=== PATIENT | female | born 1960 ===

== ENCOUNTER 2022-02-25 13:02 | Day surgery (SDC) | payer BC ==
[~2022-02-25] VITALS: Ht 162.6 cm; Wt 81.3 kg
== END 2022-02-25 16:30 | disposition home or self-care (01) ==
LOC: ORSCSDS 13:02
PROVIDERS: Student in an Organized Health Care Education/Training Program
PROC: 0DBH8ZX Excision of Cecum, Via Natural or Artificial Opening Endoscopic, Diagnostic (ICD-10-PCS; principal; 2022-02-25 14:45)
PROC: 0DBK8ZX Excision of Ascending Colon, Via Natural or Artificial Opening Endoscopic, Diagnostic (ICD-10-PCS; principal; 2022-02-25 14:45)
PROC: 0DBN8ZX Excision of Sigmoid Colon, Via Natural or Artificial Opening Endoscopic, Diagnostic (ICD-10-PCS; principal; 2022-02-25 14:45)
PROC: 0DBL8ZX Excision of Transverse Colon, Via Natural or Artificial Opening Endoscopic, Diagnostic (ICD-10-PCS; principal; 2022-02-25 14:45)
PROC: 0DBM8ZX Excision of Descending Colon, Via Natural or Artificial Opening Endoscopic, Diagnostic (ICD-10-PCS; principal; 2022-02-25 14:45)
DX: R19.5 Other fecal abnormalities (principal); D12.0 Benign neoplasm of cecum; D12.2 Benign neoplasm of ascending colon; D12.3 Benign neoplasm of transverse colon; D12.4 Benign neoplasm of descending colon; K64.8 Other hemorrhoids; Z80.0 Family history of malignant neoplasm of digestive organs
CPT/HCPCS: J0330; J0461; J2405; J2704; J7120

== ENCOUNTER 2022-07-23 07:30 | Inpatient (IN) | payer BC ==
[~2022-07-23] VITALS: Ht 160 cm; Wt 83.2 kg
[~2022-07-23 07:30] MED LIST: Fruit C-100100 MG PO
--- NOTE | 2022-07-25 08:03 | NUR ---
07/25/22 0803 SHARAN STOLL RED RASH LOWER ABD.
--- NOTE | 2022-07-25 10:03 | NUR ---
DISCHARGE SUMMARY PT A&OX4, VSS, BP TRENDING DOWN, EDU PT TO RECORD BP AM/PM AND SHOW TO PCP AT FU APPT, ON RA, DENIS PO SIPS H20, DRESSED SELF, AMB INDEPENDENTLY, DENIES PAIN. DC INS PROVIDED. PT AND REP UNDERSTANDING THOSE INSTRUCTIONS INCLUDING NO LIFTING >10 LBS, FU WITH SURGEON 2 WKS, STERI STRIPS IN PLACE 7-10 DAYS, OK TO SHOWER TOMORROW. 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
== END 2022-07-26 18:17 | disposition home or self-care (01) | DRG 331 ==
LOC: PRE IP 07:30 → SURS 07-25 05:37
PROVIDERS: ADMIT Surgery
PROC: 0DBH4ZZ Excision of Cecum, Percutaneous Endoscopic Approach (ICD-10-PCS; 2022-07-25)
PROC: 0DTJ4ZZ Resection of Appendix, Percutaneous Endoscopic Approach (ICD-10-PCS; principal; 2022-07-25 07:30)
DX: K63.5 Polyp of colon (principal); G43.909 Migraine, unspecified, not intractable, without status migrainosus; Z98.890 Other specified postprocedural states; Z88.0 Allergy status to penicillin
CPT/HCPCS: 88307; 93005; 93010; J0690; J2250; J2704; J3010; J7120

== ENCOUNTER 2022-08-26 06:29 | Day surgery (SDC) | payer BC ==
[~2022-08-26] VITALS: Ht 160 cm; Wt 81.8 kg
[2022-08-26] MEDS ORDERED: LISI20 (06:54)
[2022-08-26 09:14] VITALS: BP 129/75
== END 2022-08-26 09:10 | disposition home or self-care (01) ==
LOC: ORSCSDS 06:29
PROVIDERS: Student in an Organized Health Care Education/Training Program
PROC: 0DBN8ZX Excision of Sigmoid Colon, Via Natural or Artificial Opening Endoscopic, Diagnostic (ICD-10-PCS; principal; 2022-08-26 08:00)
PROC: 0DBH8ZX Excision of Cecum, Via Natural or Artificial Opening Endoscopic, Diagnostic (ICD-10-PCS; principal; 2022-08-26 08:00)
PROC: 0DBL8ZX Excision of Transverse Colon, Via Natural or Artificial Opening Endoscopic, Diagnostic (ICD-10-PCS; principal; 2022-08-26 08:00)
DX: R19.5 Other fecal abnormalities (principal); K63.5 Polyp of colon; K64.8 Other hemorrhoids; Z86.010 Personal history of colon polyps
CPT/HCPCS: 88305; J2704; J7120